=== PATIENT | female | born 1955 | race African-American/Black ===

== ENCOUNTER 2019-02-05 13:18 | Inpatient (IN) | payer MEDICAID ==
[~2019-02-05] VITALS: Ht 157.5 cm; Wt 109.3 kg
[2019-02-05] MEDS ORDERED: METHYLPREDNISOLONE SOD SUCC 125 MG/2 ML VIAL IV STA (13:33)
[2019-02-05] MEDS ORDERED: IPRATROPIUM BROMIDE (0.02%) 0.5MG/2.5ML NEB HHN STA (13:33)
[2019-02-05] MEDS ORDERED: ALBUTEROL (0.083%) 2.5MG/3ML NEB HHN STA (13:33)
[2019-02-05] MEDS ORDERED: ASPIRIN 81MG TABLET PO ONE (13:45)
[2019-02-05] MEDS ORDERED: FUROSEMIDE 40MG/4ML VIAL IV ONE (13:45)
[2019-02-05] MEDS ORDERED: NITROGLYCERIN OINT 1GM/INCH UDPKT TD ONE (13:45)
[2019-02-05 13:52] LABS: BG BASE EXCESS 1.1 mmol/L (-2.0-2.0); BG BILEVEL POS AIRWAY PRESSURE 15/5; BG CARBOXYHEMOGLOBIN 0.3 % (0.5-1.5); BG DEOXYHEMOGLOBIN 0.2 % (0.0-5.0); BG FRACTION INSPIRED OXYGEN 100; BG HCO3 ACT 26.4 mmol/L (22.0-26.0); BG METHEMOGLOBIN 0.6 % (0.0-1.5); BG OXYGEN SATURATION 99.8 % (92.0-98.5); BG OXYHEMOGLOBIN 98.9 % (94.0-97.0); BG PCO2 45.4 mmHg (35.0-45.0); BG PH 7.383 (7.350-7.450); BG PO2 558.8 mmHg (75.0-100.0); BG SAMPLE SITE RIGHT BRACHIAL; BG TOTAL HEMOGLOBIN 10.5 g/dL (12.0-18.0); BG VENT MODE MASK - BIPAP; BG VENT RATE 14 set
[2019-02-05 14:08] LABS: BASOPHILS % 0.6 % (0.0-2.0); EOSINOPHILS % 2.4 % (0.0-5.0); HEMATOCRIT. 32.3 % (36.0-48.0); HEMOGLOBIN. 9.9 g/dL (12.0-16.0); LYMPHOCYTES % 31.1 % (20.0-50.0); MEAN CORPUSCULAR HEMOGLOBIN 21.7 pg (28.0-32.0); MEAN CORPUSCULAR VOLUME 70.9 fL (81.0-99.0); MEAN PLATELET VOLUME 9.2 fl (7.4-10.4); MONOCYTES % 6.1 % (2.0-8.0); NEUTROPHILS % 59.8 % (40.0-76.0); PLATELET 219 x1000/uL (130-400); RED BLOOD CELL COUNT 4.56 mill/uL (4.2-5.4); RED CELL DISTRIBUTION WIDTH 16.2 % (11.6-14.6)
[2019-02-05 14:13] LABS: CHLORIDE 108 mEq/L (98-107)
[2019-02-05 14:16] LABS: PARTIAL THROMBOPLASTIN TIME 25.8 sec (23.4-31.0); PROTHROMBIN TIME 10.3 sec (9.6-11.0)
[2019-02-05] MEDS ORDERED: ONDANSETRON HCL 4MG/2ML INJ IV STA (15:59)
[2019-02-05] MEDS ORDERED: MORPHINE SULFATE 4 MG/ML CPJ (NOT FOR IM USE) IV STA (15:59)
[2019-02-05] MEDS ORDERED: ONDANSETRON HCL 4MG/2ML INJ IV PRN (17:00)
[2019-02-05] MEDS ORDERED: LEVOFLOXACIN 500MG PREMIX 100 ML IV SCH (17:00)
[2019-02-05] MEDS ORDERED: DEXTROSE 50% WATER 50ML SYRINGE IV PRN (17:00)
[2019-02-05] MEDS ORDERED: ACETAMINOPHEN 650MG SUPP PR PRN (17:00)
[2019-02-05] MEDS ORDERED: MAGNESIUM/ALUMINUM HYDROXIDE/SIMETHICONE 30ML UDC PO PRN (17:00)
[2019-02-05] MEDS ORDERED: NA PHOS,M-B/NA PHOS,DI-BA ENEMA 118ML PR PRN (17:00)
[2019-02-05] MEDS ORDERED: IPRATROPIUM/ALBUTEROL 0.5-3(2.5)MG/3ML NEB INH PRN (17:00)
[2019-02-05] MEDS ORDERED: ACETAMINOPHEN 325MG TABLET PO PRN (17:00)
[2019-02-05] MEDS ORDERED: GUAIFENESIN 200MG/10ML SUGAR FREE UDC PO PRN (17:00)
[2019-02-05] MEDS ORDERED: DIPHENHYDRAMINE 50MG/ML VIAL IV PRN (17:00)
[2019-02-05] MEDS: CLONIDINE 0.1MG TABLET PO PRN (17:43)
[2019-02-05 22:00] VITALS: BP 202/104
[2019-02-05] MEDS: LOSARTAN POTASSIUM 25 MG TABLET PO SCH (22:34)
[2019-02-05] MEDS: BLOOD SUGAR DIAGNOSTIC STRIP TEST SCH (22:35)
[2019-02-05] MEDS: AMLODIPINE 5MG TABLET PO SCH (22:35)
[2019-02-05] MEDS: METHYLPREDNISOLONE SOD SUCC 40 MG/ML VIAL IV SCH (22:35)
[2019-02-05] MEDS: INSULIN LISPRO 100 UNITS/ML SUBCUT SCH (22:52)
[2019-02-05] MEDS: HYDROCODONE/ACETAMINOPHEN 5/325MG TABLET PO PRN ×2 (22:58→22:59)
[2019-02-05 23:00] VITALS: BP 168/86
[2019-02-05] MEDS: LEVOFLOXACIN 500MG PREMIX 100 ML IV SCH (23:33)
[2019-02-06] VITALS (12 sets, daily range): BP systolic 151–202; BP diastolic 78–144
[2019-02-06 00:33] LABS: CREATINE KINASE 41 IU/L (26-192)
[2019-02-06 00:34] LABS: CREATINE KINASE MB FRACTION < 1.0 ng/mL (0.5-3.6)
[2019-02-06] MEDS: IPRATROPIUM/ALBUTEROL 0.5-3(2.5)MG/3ML NEB INH SCH ×3 (02:00→20:41)
[2019-02-06] MEDS: CLONIDINE 0.1MG TABLET PO PRN ×2 (03:15→12:31)
[2019-02-06 05:35] LABS: BASOPHILS % 0.1 % (0.0-2.0); HEMATOCRIT. 33.8 % (36.0-48.0); HEMOGLOBIN. 10.2 g/dL (12.0-16.0); LYMPHOCYTES % 13.9 % (20.0-50.0); MEAN CORPUSCULAR HEMOGLOBIN 21.5 pg (28.0-32.0); MEAN CORPUSCULAR VOLUME 71.4 fL (81.0-99.0); MONOCYTES % 1.3 % (2.0-8.0); NEUTROPHILS % 84.7 % (40.0-76.0); PLATELET 204 x1000/uL (130-400); RED BLOOD CELL COUNT 4.74 mill/uL (4.2-5.4); RED CELL DISTRIBUTION WIDTH 16.5 % (11.6-14.6)
[2019-02-06 05:46] LABS: CHLORIDE 104 mEq/L (98-107)
[2019-02-06 05:59] LABS: LDL CHOLESTEROL 80 mg/dL (5-100)
[2019-02-06 06:00] LABS: CREATINE KINASE 43 IU/L (26-192); CREATINE KINASE MB FRACTION < 1.0 ng/mL (0.5-3.6); HDL CHOLESTEROL 82 mg/dL (40-59); T4 FREE 1.05 ng/dL (0.76-1.46)
[2019-02-06] MEDS: METHYLPREDNISOLONE SOD SUCC 40 MG/ML VIAL IV SCH ×3 (06:45→21:36)
[2019-02-06] MEDS ORDERED: PNEUMOCOCCAL 23-VAL P-SAC VAC 0.5 ML IM ONE (08:00)
[2019-02-06] MEDS: BLOOD SUGAR DIAGNOSTIC STRIP TEST SCH ×4 (08:07→21:37)
[2019-02-06] MEDS: ASPIRIN 81MG EC TABLET PO SCH (08:18)
[2019-02-06] MEDS: FUROSEMIDE 40MG/4ML VIAL IV SCH (08:18)
[2019-02-06] MEDS: LOSARTAN POTASSIUM 25 MG TABLET PO SCH (08:19)
[2019-02-06] MEDS: AMLODIPINE 5MG TABLET PO SCH (08:19)
[2019-02-06] MEDS: ENOXAPARIN 40MG/0.4ML SYR SUBCUT SCH (08:20)
[2019-02-06] MEDS: INSULIN LISPRO 100 UNITS/ML SUBCUT SCH ×4 (08:22→21:37)
[2019-02-06] MEDS: HYDROCODONE/ACETAMINOPHEN 5/325MG TABLET PO PRN (11:11)
[2019-02-06] MEDS: HYDRALAZINE 20MG/ML VIAL IV PRN ×2 (11:14→18:31)
[2019-02-06] MEDS ORDERED: FUROSEMIDE 40MG/4ML VIAL IVP NR (12:00)
[2019-02-06] MEDS ORDERED: MORPHINE SULFATE 2 MG/ML CPJ (NOT FOR IM USE) IV SCH (13:02)
[2019-02-06 13:15] LABS: BG BASE EXCESS 0.1 mmol/L (-2.0-2.0); BG CARBOXYHEMOGLOBIN 0.9 % (0.5-1.5); BG DEOXYHEMOGLOBIN 2.5 % (0.0-5.0); BG FRACTION INSPIRED OXYGEN 25; BG HCO3 ACT 24.2 mmol/L (22.0-26.0); BG METHEMOGLOBIN 0.3 % (0.0-1.5); BG OXYGEN SATURATION 97.5 % (92.0-98.5); BG OXYHEMOGLOBIN 96.3 % (94.0-97.0); BG PCO2 37.5 mmHg (35.0-45.0); BG PH 7.428 (7.350-7.450); BG PO2 92.3 mmHg (75.0-100.0); BG SAMPLE SITE RIGHT RADIAL; BG TOTAL HEMOGLOBIN 13.7 g/dL (12.0-18.0); BG VENT MODE NASAL CANNULA
[2019-02-06 13:36] LABS: CLARITY URINE CLEAR (CLEAR); COLOR URINE YELLOW (YELLOW); KETONES URINE NEGATIVE (NEGATIVE); LEUKOCYTE ESTERASE URINE NEGATIVE (NEGATIVE); NITRITE URINE NEGATIVE (NEGATIVE); OCCULT BLOOD URINE NEGATIVE (NEGATIVE); PROTEIN URINE NEGATIVE (NEGATIVE); SPECIFIC GRAVITY URINE 1.006 (1.005-1.030); UROBILINOGEN URINE 0.2 E.U./dL (0.2-1.0)
[2019-02-06 13:44] LABS: *AMPHETAMINES SCREEN URINE NEGATIVE (NEGATIVE); *BARBITURATES SCREEN URINE NEGATIVE (NEGATIVE); *BENZODIAZEPINES SCREEN URINE NEGATIVE (NEGATIVE); *COCAINE SCREEN URINE NEGATIVE (NEGATIVE)
[2019-02-06 13:45] LABS: CANNABINOID URINE SCREEN NEGATIVE (NEGATIVE); METHADONE URINE SCREEN NEGATIVE (NEGATIVE); OPIATES URINE SCREEN PRESUMTIVE POSITIVE (NEGATIVE); PHENCYCLIDINE URINE SCREEN NEGATIVE (NEGATIVE)
[2019-02-06] MEDS ORDERED: LOSARTAN POTASSIUM 25 MG TABLET PO NR (16:00)
[2019-02-06] MEDS ORDERED: ISOS60TA4 MT (17:30)
[2019-02-06] MEDS ORDERED: CARV25TA47 MT (17:30)
[2019-02-06] MEDS ORDERED: SIMV20TA6 MT (17:30)
[2019-02-06] MEDS ORDERED: OMEP20CA5 MT (17:30)
[2019-02-06] MEDS ORDERED: FURO40TA5 MT (17:30)
[2019-02-06] MEDS ORDERED: METOPROLOL TARTRATE 5MG/5ML VIAL IV NR (19:45)
[2019-02-06] MEDS: BUDESONIDE 0.5MG/2ML NEB HHN SCH (20:49)
[2019-02-06] MEDS: MORPHINE SULFATE 2 MG/ML CPJ (NOT FOR IM USE) IV PRN (21:13)
[2019-02-06] MEDS: LEVOFLOXACIN 500MG PREMIX 100 ML IV SCH (23:30)
[2019-02-07] VITALS (14 sets, daily range): BP systolic 149–211; BP diastolic 76–140
[2019-02-07] MEDS: HYDRALAZINE 20MG/ML VIAL IV PRN ×2 (06:43→11:15)
[2019-02-07] MEDS: METHYLPREDNISOLONE SOD SUCC 40 MG/ML VIAL IV SCH ×3 (06:45→21:05)
[2019-02-07] MEDS: MORPHINE SULFATE 2 MG/ML CPJ (NOT FOR IM USE) IV PRN ×3 (07:04→21:06)
[2019-02-07] MEDS: IPRATROPIUM/ALBUTEROL 0.5-3(2.5)MG/3ML NEB INH SCH ×3 (07:39→20:37)
[2019-02-07] MEDS: BUDESONIDE 0.5MG/2ML NEB HHN SCH ×2 (07:39→20:37)
[2019-02-07] MEDS: BLOOD SUGAR DIAGNOSTIC STRIP TEST SCH ×4 (07:45→21:18)
[2019-02-07] MEDS ORDERED: NITROGLYCERIN OINT 1GM/INCH UDPKT TD NR (07:56)
[2019-02-07] MEDS: FAMOTIDINE 20MG/2ML VIAL IV SCH ×2 (08:07→21:06)
[2019-02-07] MEDS: ASPIRIN 81MG EC TABLET PO SCH (08:08)
[2019-02-07] MEDS: FUROSEMIDE 40MG/4ML VIAL IV SCH (08:08)
[2019-02-07] MEDS: AMLODIPINE 5MG TABLET PO SCH (08:10)
[2019-02-07] MEDS: INSULIN LISPRO 100 UNITS/ML SUBCUT SCH ×4 (08:21→21:15)
[2019-02-07] MEDS: ENOXAPARIN 40MG/0.4ML SYR SUBCUT SCH (08:28)
[2019-02-07] MEDS ORDERED: DILTIAZEM HCL 5MG/ML 5ML VIAL IV NR (08:30)
[2019-02-07] MEDS ORDERED: LOSARTAN POTASSIUM 50 MG TABLET PO SCH (09:00)
[2019-02-07] MEDS ORDERED: DIGOXIN 500MCG/2ML AMP IV NR (12:30)
[2019-02-07] MEDS ORDERED: DILTIAZEM HCL 125 MG in DEXT 5% WATER 100 ML IV PRN (12:30)
[2019-02-07] MEDS ORDERED: GADOBENATE DIMEGLUMINE 529 MG/ML 10ML IV ONE (15:54)
[2019-02-07 16:22] LABS: CHLORIDE 102 mEq/L (98-107)
[2019-02-07] MEDS: ENOXAPARIN 100MG/ML SYR SUBCUT SCH (16:48)
[2019-02-07] MEDS: NITROGLYCERIN OINT 1GM/INCH UDPKT TD SCH ×2 (16:51→21:17)
[2019-02-07] MEDS: DILTIAZEM HCL 60MG TABLET PO SCH ×2 (17:20→23:45)
[2019-02-07] MEDS: METOCLOPRAMIDE HCL 10MG/2ML VIAL IV SCH ×2 (17:21→23:45)
[2019-02-07 17:43] LABS: BASOPHILS % 0.5 % (0.0-2.0); HEMOGLOBIN. 11.7 g/dL (12.0-16.0); LYMPHOCYTES % 8.2 % (20.0-50.0); MEAN CORPUSCULAR HEMOGLOBIN 21.9 pg (28.0-32.0); MEAN CORPUSCULAR VOLUME 71.1 fL (81.0-99.0); MEAN PLATELET VOLUME 9.9 fl (7.4-10.4); MONOCYTES % 2.7 % (2.0-8.0); NEUTROPHILS % 88.6 % (40.0-76.0); PLATELET 298 x1000/uL (130-400); RED BLOOD CELL COUNT 5.35 mill/uL (4.2-5.4); RED CELL DISTRIBUTION WIDTH 16.8 % (11.6-14.6)
[2019-02-07] MEDS: LOSARTAN POTASSIUM 50 MG TABLET PO SCH (21:07)
[2019-02-07] MEDS: LEVOFLOXACIN 500MG PREMIX 100 ML IV SCH (23:45)
[2019-02-08] VITALS (30 sets, daily range): BP systolic 112–214; BP diastolic 35–122
[2019-02-08] MEDS: HYDRALAZINE 20MG/ML VIAL IV PRN ×3 (00:08→12:37)
[2019-02-08] MEDS: IPRATROPIUM/ALBUTEROL 0.5-3(2.5)MG/3ML NEB INH SCH ×4 (00:38→21:12)
[2019-02-08] MEDS: ENOXAPARIN 100MG/ML SYR SUBCUT SCH ×2 (04:50→18:19)
[2019-02-08] MEDS: LACTULOSE 20G/30ML UDC PO SCH ×3 (04:51→17:00)
[2019-02-08] MEDS: NITROGLYCERIN OINT 1GM/INCH UDPKT TD SCH ×4 (04:51→22:16)
[2019-02-08] MEDS: MORPHINE SULFATE 2 MG/ML CPJ (NOT FOR IM USE) IV PRN (04:52)
[2019-02-08] MEDS: METOCLOPRAMIDE HCL 10MG/2ML VIAL IV SCH ×3 (05:14→18:00)
[2019-02-08] MEDS: METHYLPREDNISOLONE SOD SUCC 40 MG/ML VIAL IV SCH ×2 (05:14→14:55)
[2019-02-08] MEDS: DILTIAZEM HCL 60MG TABLET PO SCH ×2 (05:18→12:36)
[2019-02-08 07:06] LABS: BASOPHILS % 0.1 % (0.0-2.0); HEMOGLOBIN. 10.4 g/dL (12.0-16.0); LYMPHOCYTES % 9.4 % (20.0-50.0); MEAN CORPUSCULAR HEMOGLOBIN 21.2 pg (28.0-32.0); MEAN CORPUSCULAR VOLUME 70.9 fL (81.0-99.0); MONOCYTES % 2.9 % (2.0-8.0); NEUTROPHILS % 87.6 % (40.0-76.0); PLATELET 271 x1000/uL (130-400); RED BLOOD CELL COUNT 4.93 mill/uL (4.2-5.4); RED CELL DISTRIBUTION WIDTH 16.2 % (11.6-14.6)
[2019-02-08 07:21] LABS: CHLORIDE 102 mEq/L (98-107)
[2019-02-08] MEDS: BLOOD SUGAR DIAGNOSTIC STRIP TEST SCH ×4 (07:30→21:00)
[2019-02-08 07:32] LABS: CREATINE KINASE 37 IU/L (26-192)
[2019-02-08 07:33] LABS: CREATINE KINASE MB FRACTION 1.6 ng/mL (0.5-3.6)
[2019-02-08] MEDS: CLONIDINE 0.1MG TABLET PO PRN ×3 (08:09→18:00)
[2019-02-08] MEDS: DOCUSATE SODIUM 100MG CAPSULE PO PRN ×2 (08:09→18:00)
[2019-02-08] MEDS: FUROSEMIDE 40MG/4ML VIAL IV SCH (08:09)
[2019-02-08] MEDS: ASPIRIN 81MG EC TABLET PO SCH (08:10)
[2019-02-08] MEDS: FAMOTIDINE 20MG/2ML VIAL IV SCH ×2 (08:10→22:16)
[2019-02-08] MEDS: LOSARTAN POTASSIUM 50 MG TABLET PO SCH ×2 (08:10→22:16)
[2019-02-08] MEDS: AMLODIPINE 5MG TABLET PO SCH (08:38)
[2019-02-08] MEDS: BUDESONIDE 0.5MG/2ML NEB HHN SCH ×2 (08:46→21:11)
[2019-02-08] MEDS: INSULIN LISPRO 100 UNITS/ML SUBCUT SCH ×4 (08:59→22:16)
[2019-02-08] MEDS: DILTIAZEM HCL 125 MG in DEXT 5% WATER 100 ML IV SCH (12:04)
[2019-02-08] MEDS ORDERED: HYDRALAZINE 20MG/ML VIAL IV PRN (13:15)
[2019-02-08] MEDS ORDERED: DEXTROSE 50% WATER 50ML SYRINGE IV PRN (17:30)
[2019-02-08] MEDS: DILTIAZEM HCL 90MG TABLET PO SCH (18:01)
[2019-02-08] MEDS: HYDRALAZINE HCL 100MG TABLET PO SCH (22:17)
[2019-02-08] MEDS: LEVOFLOXACIN 500MG PREMIX 100 ML IV SCH (22:18)
[2019-02-09] VITALS (16 sets, daily range): BP systolic 131–183; BP diastolic 58–103
[2019-02-09] MEDS: METOCLOPRAMIDE HCL 10MG/2ML VIAL IV SCH ×4 (00:16→17:08)
[2019-02-09] MEDS: DILTIAZEM HCL 90MG TABLET PO SCH ×4 (00:16→18:16)
[2019-02-09] MEDS: MORPHINE SULFATE 2 MG/ML CPJ (NOT FOR IM USE) IV PRN ×4 (00:33→23:27)
[2019-02-09] MEDS: IPRATROPIUM/ALBUTEROL 0.5-3(2.5)MG/3ML NEB INH SCH ×4 (02:15→21:33)
[2019-02-09] MEDS: NITROGLYCERIN OINT 1GM/INCH UDPKT TD SCH ×4 (04:50→23:28)
[2019-02-09] MEDS: ENOXAPARIN 100MG/ML SYR SUBCUT SCH ×2 (04:51→16:54)
[2019-02-09] MEDS: HYDRALAZINE HCL 100MG TABLET PO SCH ×3 (05:05→23:26)
[2019-02-09 07:50] LABS: BASOPHILS % 0.2 % (0.0-2.0); HEMATOCRIT. 35.3 % (36.0-48.0); LYMPHOCYTES % 11.6 % (20.0-50.0); MEAN CORPUSCULAR HEMOGLOBIN 21.7 pg (28.0-32.0); MEAN PLATELET VOLUME 9.1 fl (7.4-10.4); MONOCYTES % 5.4 % (2.0-8.0); NEUTROPHILS % 82.8 % (40.0-76.0); PLATELET 272 x1000/uL (130-400); RED BLOOD CELL COUNT 5.04 mill/uL (4.2-5.4); RED CELL DISTRIBUTION WIDTH 16.4 % (11.6-14.6)
[2019-02-09] MEDS: BLOOD SUGAR DIAGNOSTIC STRIP TEST SCH ×4 (08:00→21:00)
[2019-02-09] MEDS: LACTULOSE 20G/30ML UDC PO SCH ×2 (08:38→16:39)
[2019-02-09] MEDS: FUROSEMIDE 40MG/4ML VIAL IV SCH (08:38)
[2019-02-09] MEDS: LOSARTAN POTASSIUM 50 MG TABLET PO SCH ×2 (08:38→22:33)
[2019-02-09] MEDS: FAMOTIDINE 20MG/2ML VIAL IV SCH ×2 (08:38→22:33)
[2019-02-09] MEDS: ASPIRIN 81MG EC TABLET PO SCH (08:38)
[2019-02-09] MEDS: PREDNISONE 20MG TABLET PO SCH (08:38)
[2019-02-09] MEDS: INSULIN LISPRO 100 UNITS/ML SUBCUT SCH ×4 (08:40→22:32)
[2019-02-09 08:51] LABS: CHLORIDE 102 mEq/L (98-107)
[2019-02-09] MEDS: DILTIAZEM HCL 125 MG in DEXT 5% WATER 100 ML IV SCH (10:52)
[2019-02-09] MEDS: MINOXIDIL 2.5MG TABLET PO SCH ×2 (12:54→22:33)
[2019-02-09] MEDS: CLONIDINE 0.1MG TABLET PO PRN (15:10)
[2019-02-09] MEDS ORDERED: DIGOXIN 500MCG/2ML AMP IV SCH (18:00)
[2019-02-09 19:46] LABS: PLATELET ESTIMATE NORMAL
[2019-02-09] MEDS ORDERED: LEVOFLOXACIN 500MG TABLET PO SCH (22:00)
[2019-02-09] MEDS: METOPROLOL TARTRATE 25MG TABLET PO SCH (23:26)
[2019-02-10] VITALS (10 sets, daily range): BP systolic 107–157; BP diastolic 38–89
[2019-02-10] MEDS: METOCLOPRAMIDE HCL 10MG/2ML VIAL IV SCH ×3 (01:37→12:17)
[2019-02-10] MEDS: DILTIAZEM HCL 90MG TABLET PO SCH ×3 (01:38→12:21)
[2019-02-10] MEDS: CLONIDINE 0.1MG TABLET PO PRN (01:38)
[2019-02-10] MEDS: CLONIDINE 0.2MG TABLET PO SCH ×3 (01:49→14:23)
[2019-02-10] MEDS: IPRATROPIUM/ALBUTEROL 0.5-3(2.5)MG/3ML NEB INH SCH ×3 (02:37→13:05)
[2019-02-10] MEDS: NITROGLYCERIN OINT 1GM/INCH UDPKT TD SCH ×2 (04:00→09:38)
[2019-02-10] MEDS: HYDRALAZINE HCL 100MG TABLET PO SCH ×2 (05:03→14:23)
[2019-02-10] MEDS: ENOXAPARIN 100MG/ML SYR SUBCUT SCH (05:11)
[2019-02-10 07:46] LABS: BASOPHILS % 0.5 % (0.0-2.0); EOSINOPHILS % 0.1 % (0.0-5.0); HEMATOCRIT. 35.3 % (36.0-48.0); HEMOGLOBIN. 10.8 g/dL (12.0-16.0); LYMPHOCYTES % 32.1 % (20.0-50.0); MEAN CORPUSCULAR HEMOGLOBIN 21.5 pg (28.0-32.0); MEAN CORPUSCULAR VOLUME 70.7 fL (81.0-99.0); MEAN PLATELET VOLUME 8.7 fl (7.4-10.4); MONOCYTES % 8.8 % (2.0-8.0); NEUTROPHILS % 58.5 % (40.0-76.0); PLATELET 249 x1000/uL (130-400); RED CELL DISTRIBUTION WIDTH 16.6 % (11.6-14.6)
[2019-02-10 07:52] LABS: CHLORIDE 104 mEq/L (98-107)
[2019-02-10] MEDS: BLOOD SUGAR DIAGNOSTIC STRIP TEST SCH ×2 (08:20→12:22)
[2019-02-10] MEDS: METOPROLOL TARTRATE 25MG TABLET PO SCH (09:00)
[2019-02-10] MEDS: LOSARTAN POTASSIUM 50 MG TABLET PO SCH (09:00)
[2019-02-10] MEDS: FAMOTIDINE 20MG/2ML VIAL IV SCH (09:33)
[2019-02-10] MEDS: FUROSEMIDE 40MG/4ML VIAL IV SCH (09:33)
[2019-02-10] MEDS: LACTULOSE 20G/30ML UDC PO SCH (09:34)
[2019-02-10] MEDS: PREDNISONE 20MG TABLET PO SCH (09:35)
[2019-02-10] MEDS: ASPIRIN 81MG EC TABLET PO SCH (09:35)
[2019-02-10] MEDS: MINOXIDIL 2.5MG TABLET PO SCH (09:36)
[2019-02-10] MEDS: INSULIN LISPRO 100 UNITS/ML SUBCUT SCH ×2 (09:37→12:25)
[2019-02-10] MEDS ORDERED: POTASSIUM CHLORIDE 20MEQ TABLET SR PO NR (11:45)
[2019-02-10] MEDS: HYDROCODONE/ACETAMINOPHEN 5/325MG TABLET PO PRN (15:28)
== END 2019-02-10 16:20 | disposition home or self-care (01) | DRG 201 ==
LOC: ER 13:18 → 5EST 16:23 → SUPCPDRO 16:32 → EDBEDREQ 16:36 → ENRESERV 19:45 → 5EST 02-10 02:02
PROVIDERS: ADMIT Internal Medicine; ATTEND Internal Medicine
PROC: 5A09357 Assistance with Respiratory Ventilation, Less than 24 Consecutive Hours, Continuous Positive Airway Pressure (ICD-10-PCS; principal; 2019-02-05)
PROC: 5A09357 Assistance with Respiratory Ventilation, Less than 24 Consecutive Hours, Continuous Positive Airway Pressure (ICD-10-PCS; 2019-02-09)
DX: I48.91 Unspecified atrial fibrillation (principal); J96.02 Acute respiratory failure with hypercapnia; I50.33 Acute on chronic diastolic (congestive) heart failure; J18.9 Pneumonia, unspecified organism; D68.59 Other primary thrombophilia; E87.2 Acidosis; E66.2 Morbid (severe) obesity with alveolar hypoventilation; E11.65 Type 2 diabetes mellitus with hyperglycemia; I11.0 Hypertensive heart disease with heart failure; J44.1 Chronic obstructive pulmonary disease with (acute) exacerbation; K56.7 Ileus, unspecified; F41.9 Anxiety disorder, unspecified; I16.0 Hypertensive urgency; D64.9 Anemia, unspecified; E78.5 Hyperlipidemia, unspecified; R29.6 Repeated falls; R07.89 Other chest pain; Z68.41 Body mass index [BMI] 40.0-44.9, adult; Z99.81 Dependence on supplemental oxygen; J44.0 Chronic obstructive pulmonary disease with (acute) lower respiratory infection
CPT/HCPCS: 36415; 36600; 71045; 74018; 78580; 80048; 80061; 80305; 81003; 82375; 82550; 82553; 82805; 82962; 83036; 83735; 83880; 84439; 84443; 84484; 85379; 87070; 93005; 93306; 93970; 94640; 94644; 94660; 96374; 99285; A9577; J0360; J1160; J1200; J1650; J1815; J1940; J1956; J2270; J2405; J2765; J2920; J2930; J3490; J7060; J7512; J7611; J7620; J7626

== ENCOUNTER 2019-03-17 20:48 | Inpatient (IN) | payer MEDICAID ==
[~2019-03-17] VITALS: Ht 157.5 cm; Wt 100.7 kg
[2019-03-17 05:45] VITALS: BP 176/116
[~2019-03-17 20:48] MED LIST: FURO40TA5 MT; OMEP20CA5 MT; SIMV20TA6 MT
[2019-03-17] MEDS ORDERED: SODIUM CHLORIDE 0.9% 1,000 ML IV ONE (22:44)
[2019-03-17] MEDS ORDERED: INSULIN REGULAR (HUMULIN R) 300UNITS/3ML SUBCUT ONE (22:45)
[2019-03-17 23:36] LABS: BASOPHILS % 0.6 % (0.0-2.0); EOSINOPHILS % 0.7 % (0.0-5.0); HEMATOCRIT. 36.7 % (36.0-48.0); HEMOGLOBIN. 10.9 g/dL (12.0-16.0); LYMPHOCYTES % 34.6 % (20.0-50.0); MEAN CORPUSCULAR HEMOGLOBIN 22.1 pg (28.0-32.0); MEAN CORPUSCULAR VOLUME 74.1 fL (81.0-99.0); MEAN PLATELET VOLUME 8.4 fl (7.4-10.4); MONOCYTES % 8.1 % (2.0-8.0); PLATELET 219 x1000/uL (130-400); RED BLOOD CELL COUNT 4.95 mill/uL (4.2-5.4)
[2019-03-17 23:56] LABS: CHLORIDE 102 mEq/L (98-107)
[2019-03-18 00:05] LABS: BETA HYDROXYBUTYRATE 2.2 mMol/L (0.0-0.3)
[2019-03-18] MEDS ORDERED: CLONIDINE 0.2MG TABLET PO ONE (00:15)
[2019-03-18 01:17] LABS: CLARITY URINE CLEAR (CLEAR); COLOR URINE YELLOW (YELLOW); KETONES URINE 4+ (NEGATIVE); LEUKOCYTE ESTERASE URINE NEGATIVE (NEGATIVE); NITRITE URINE NEGATIVE (NEGATIVE); OCCULT BLOOD URINE NEGATIVE (NEGATIVE); PROTEIN URINE NEGATIVE (NEGATIVE); SPECIFIC GRAVITY URINE 1.034 (1.005-1.030)
[2019-03-18 05:45] VITALS: BP 176/116
[2019-03-18] MEDS ORDERED: CLON0.1T MT (06:36)
[2019-03-18] MEDS ORDERED: DILT180T11 MT (06:36)
[2019-03-18] MEDS ORDERED: METF-816 MT (06:36)
[2019-03-18] MEDS ORDERED: P20 MT (06:36)
[2019-03-18] MEDS ORDERED: METO25TA6 MT (06:36)
[2019-03-18] MEDS ORDERED: APIX5TAB MT (06:36)
[2019-03-18] MEDS ORDERED: DIGO250T81 MT (06:37)
[2019-03-18 07:59] VITALS: BP 177/69
[2019-03-18] MEDS ORDERED: ACETAMINOPHEN 325MG TABLET PO PRN (08:15)
[2019-03-18] MEDS ORDERED: ENOXAPARIN 40MG/0.4ML SYR SUBCUT SCH (08:15)
[2019-03-18] MEDS ORDERED: ONDANSETRON HCL 4MG/2ML INJ IV PRN (08:15)
[2019-03-18] MEDS ORDERED: CLONIDINE 0.1MG TABLET PO PRN (08:15)
[2019-03-18] MEDS ORDERED: ENOXAPARIN 30MG/0.3ML SYR SUBCUT SCH (09:30)
[2019-03-18] MEDS ORDERED: INFLUENZA VIRUS VACCINE(AFLURIA) 0.5ML SYR IM ONE (10:00)
[2019-03-18] MEDS ORDERED: FUROSEMIDE 40MG/4ML VIAL IV SCH (10:00)
[2019-03-18] MEDS: POTASSIUM CHLORIDE 20MEQ TABLET SR PO SCH (10:15)
[2019-03-18] MEDS: ASPIRIN 81MG EC TABLET PO SCH (10:15)
[2019-03-18] MEDS: LISINOPRIL 20MG TABLET PO SCH (10:15)
[2019-03-18] MEDS: AMLODIPINE 10MG TABLET PO SCH (10:16)
[2019-03-18] MEDS: INSULIN GLARGINE UD 100 UNITS/ML SYR SUBCUT SCH (11:25)
[2019-03-18] MEDS: HYDROCODONE/ACETAMINOPHEN 5/325MG TABLET PO PRN ×2 (11:28→23:59)
[2019-03-18 12:10] VITALS: BP 170/66
[2019-03-18] MEDS ORDERED: DEXTROSE 50% WATER 50ML SYRINGE IV PRN (13:00)
[2019-03-18] MEDS: APIXABAN 5 MG TABLET PO SCH ×2 (13:36→21:42)
[2019-03-18] MEDS: BLOOD SUGAR DIAGNOSTIC STRIP TEST SCH ×3 (13:41→21:41)
[2019-03-18] MEDS: INSULIN LISPRO 100 UNITS/ML SUBCUT SCH ×3 (13:42→21:40)
[2019-03-18 13:54] LABS: T4 FREE 1.35 ng/dL (0.76-1.46)
[2019-03-18 15:30] VITALS: BP 144/55
[2019-03-18 16:27] LABS: BASOPHILS % 0.6 % (0.0-2.0); EOSINOPHILS % 0.5 % (0.0-5.0); HEMATOCRIT. 34.9 % (36.0-48.0); HEMOGLOBIN. 10.6 g/dL (12.0-16.0); LYMPHOCYTES % 36.7 % (20.0-50.0); MEAN CORPUSCULAR VOLUME 72.4 fL (81.0-99.0); MEAN PLATELET VOLUME 8.7 fl (7.4-10.4); MONOCYTES % 6.5 % (2.0-8.0); NEUTROPHILS % 55.7 % (40.0-76.0); PLATELET 223 x1000/uL (130-400); RED BLOOD CELL COUNT 4.82 mill/uL (4.2-5.4)
[2019-03-18 16:36] LABS: CHLORIDE 102 mEq/L (98-107)
[2019-03-18 16:45] LABS: CREATINE KINASE 52 IU/L (26-192)
[2019-03-18 16:48] LABS: CREATINE KINASE MB FRACTION 1.9 ng/mL (0.5-3.6)
[2019-03-18] MEDS: OMEPRAZOLE 20MG CAPSULE EXTENDED RELEASE PO SCH (17:32)
[2019-03-18 20:00] VITALS: BP 141/81
[2019-03-18] MEDS: DILTIAZEM HCL 30MG TABLET PO SCH (21:41)
[2019-03-18] MEDS: METOPROLOL TARTRATE 25MG TABLET PO SCH (21:42)
[2019-03-19] VITALS: BP 150/64
[2019-03-19 00:30] LABS: CREATINE KINASE 45 IU/L (26-192)
[2019-03-19 00:32] LABS: CREATINE KINASE MB FRACTION 1.4 ng/mL (0.5-3.6)
[2019-03-19 04:00] VITALS: BP 126/76
[2019-03-19] MEDS: DILTIAZEM HCL 30MG TABLET PO SCH ×2 (05:51→13:39)
[2019-03-19] MEDS: HYDROCODONE/ACETAMINOPHEN 5/325MG TABLET PO PRN (06:06)
[2019-03-19] MEDS: OMEPRAZOLE 20MG CAPSULE EXTENDED RELEASE PO SCH (06:31)
[2019-03-19] MEDS: BLOOD SUGAR DIAGNOSTIC STRIP TEST SCH ×2 (07:01→12:57)
[2019-03-19 07:57] LABS: BASOPHILS % 0.7 % (0.0-2.0); LYMPHOCYTES % 39.5 % (20.0-50.0); MEAN CORPUSCULAR HEMOGLOBIN 22.2 pg (28.0-32.0); MEAN CORPUSCULAR VOLUME 73.4 fL (81.0-99.0); MEAN PLATELET VOLUME 9.3 fl (7.4-10.4); MONOCYTES % 9.5 % (2.0-8.0); NEUTROPHILS % 49.3 % (40.0-76.0); PLATELET 241 x1000/uL (130-400); RED CELL DISTRIBUTION WIDTH 16.9 % (11.6-14.6)
[2019-03-19 08:22] LABS: CHLORIDE 101 mEq/L (98-107)
[2019-03-19 08:29] VITALS: BP 133/56
[2019-03-19 08:41] LABS: HDL CHOLESTEROL 71 mg/dL (40-59); LDL CHOLESTEROL 94 mg/dL (5-100)
[2019-03-19] MEDS ORDERED: FUROSEMIDE 40MG TABLET PO SCH (09:00)
[2019-03-19] MEDS: AMLODIPINE 10MG TABLET PO SCH (09:30)
[2019-03-19] MEDS: POTASSIUM CHLORIDE 20MEQ TABLET SR PO SCH (09:31)
[2019-03-19] MEDS: METOPROLOL TARTRATE 25MG TABLET PO SCH (09:31)
[2019-03-19] MEDS: ASPIRIN 81MG EC TABLET PO SCH (09:32)
[2019-03-19] MEDS: APIXABAN 5 MG TABLET PO SCH (09:32)
[2019-03-19] MEDS: LISINOPRIL 20MG TABLET PO SCH (09:32)
[2019-03-19] MEDS: INSULIN LISPRO 100 UNITS/ML SUBCUT SCH ×2 (09:33→13:40)
[2019-03-19] MEDS: INSULIN GLARGINE UD 100 UNITS/ML SYR SUBCUT SCH (10:27)
[2019-03-19 11:50] VITALS: BP 133/67
[2019-03-19 12:10] LABS: BG BASE EXCESS -0.9 mmol/L (-2.0-2.0); BG CARBOXYHEMOGLOBIN 0.7 % (0.5-1.5); BG DEOXYHEMOGLOBIN 4.3 % (0.0-5.0); BG HCO3 ACT 23.6 mmol/L (22.0-26.0); BG METHEMOGLOBIN 0.1 % (0.0-1.5); BG OXYGEN SATURATION 95.7 % (92.0-98.5); BG OXYHEMOGLOBIN 94.9 % (94.0-97.0); BG PCO2 38.1 mmHg (35.0-45.0); BG PH 7.409 (7.350-7.450); BG PO2 77.5 mmHg (75.0-100.0); BG SAMPLE SITE LEFT RADIAL; BG TOTAL HEMOGLOBIN 11.9 g/dL (12.0-18.0); BG VENT MODE ROOM AIR
[2019-03-19 15:05] LABS: *AMPHETAMINES SCREEN URINE NEGATIVE (NEGATIVE); *BARBITURATES SCREEN URINE NEGATIVE (NEGATIVE); *BENZODIAZEPINES SCREEN URINE NEGATIVE (NEGATIVE); *COCAINE SCREEN URINE NEGATIVE (NEGATIVE); OPIATES URINE SCREEN PRESUMTIVE POSITIVE (NEGATIVE); PHENCYCLIDINE URINE SCREEN NEGATIVE (NEGATIVE)
[2019-03-19 15:06] LABS: CANNABINOID URINE SCREEN NEGATIVE (NEGATIVE); METHADONE URINE SCREEN NEGATIVE (NEGATIVE)
[2019-03-19 15:39] VITALS: BP 143/60
[2019-03-19] MEDS ORDERED: LIDOCAINE HCL/PF 1% 2ML VIAL ONE (16:12)
== END 2019-03-19 19:00 | disposition home or self-care (01) | DRG 140 ==
LOC: ER 22:01 → EDBEDREQDT 03-18 02:29 → EDBEDREQTM 03-18 02:29 → EDBEDREQ 03-18 02:29 → ENRESERV 03-18 03:50 → 6WST 03-18 05:27
PROVIDERS: ADMIT Internal Medicine; ATTEND Internal Medicine
DX: J44.1 Chronic obstructive pulmonary disease with (acute) exacerbation (principal); D68.59 Other primary thrombophilia; I11.0 Hypertensive heart disease with heart failure; E11.65 Type 2 diabetes mellitus with hyperglycemia; I50.32 Chronic diastolic (congestive) heart failure; E87.1 Hypo-osmolality and hyponatremia; E78.5 Hyperlipidemia, unspecified; J06.9 Acute upper respiratory infection, unspecified; D64.9 Anemia, unspecified; I16.0 Hypertensive urgency; I48.91 Unspecified atrial fibrillation; Z79.01 Long term (current) use of anticoagulants; Z79.899 Other long term (current) drug therapy; Z91.14 Patient's other noncompliance with medication regimen
CPT/HCPCS: 36415; 36600; 71045; 80048; 80061; 80305; 81003; 82010; 82375; 82550; 82553; 82805; 82962; 83036; 83605; 83880; 84439; 84443; 84484; 87070; 90686; 93005; 93306; 96374; 99285; C1893; J1815; J1940; J3490; J7030

== ENCOUNTER 2019-06-13 23:37 | Inpatient (IN) | payer MEDICAID ==
[~2019-06-13] VITALS: Ht 157.5 cm; Wt 88.9 kg
[~2019-06-13 23:37] MED LIST changes: +APIX5TAB MT; +CLON0.1T MT; +DIGO250T79 MT; +DILT180T11 MT; +METF-816 MT; +METO25TA6 MT; +OMEP20CA14 MT; -OMEP20CA5 MT; +SIMV-43 MT; -SIMV20TA6 MT
[2019-06-14] MEDS ORDERED: MORPHINE SULFATE 4 MG/ML CPJ (NOT FOR IM USE) IV STA (01:18)
[2019-06-14] MEDS ORDERED: ONDANSETRON HCL 4MG/2ML INJ IV STA (01:18)
[2019-06-14] MEDS ORDERED: NITROGLYCERIN OINT 1GM/INCH UDPKT TD ONE (01:30)
[2019-06-14] MEDS ORDERED: ASPIRIN 81MG TABLET PO ONE (01:30)
[2019-06-14 01:51] LABS: BASOPHILS % 0.4 % (0.0-2.0); EOSINOPHILS % 0.8 % (0.0-5.0); HEMATOCRIT. 33.7 % (36.0-48.0); HEMOGLOBIN. 10.2 g/dL (12.0-16.0); LYMPHOCYTES % 27.8 % (20.0-50.0); MEAN CORPUSCULAR HEMOGLOBIN 22.4 pg (28.0-32.0); MEAN PLATELET VOLUME 7.8 fl (7.4-10.4); PLATELET 330 x1000/uL (130-400); RED BLOOD CELL COUNT 4.55 mill/uL (4.2-5.4); RED CELL DISTRIBUTION WIDTH 16.3 % (11.6-14.6)
[2019-06-14 01:57] LABS: CHLORIDE 106 mEq/L (98-107)
[2019-06-14] MEDS ORDERED: KETOROLAC 15MG/ML VIAL IV ONE (03:00)
[2019-06-14 09:00] VITALS: BP 150/71
[2019-06-14] MEDS ORDERED: DEXTROSE 50% WATER 50ML SYRINGE IV PRN (10:15)
[2019-06-14 10:20] VITALS: BP 150/71
[2019-06-14] MEDS: BLOOD SUGAR DIAGNOSTIC STRIP TEST SCH ×3 (11:48→21:47)
[2019-06-14 12:00] VITALS: BP 164/76
[2019-06-14] MEDS: INSULIN LISPRO 100 UNITS/ML SUBCUT SCH ×3 (12:37→22:27)
[2019-06-14] MEDS: HYDRALAZINE 20MG/ML VIAL IV PRN (13:43)
[2019-06-14] MEDS: HYDROCODONE/ACETAMINOPHEN 5/325MG TABLET PO PRN (15:42)
[2019-06-14 16:00] VITALS: BP 172/73
[2019-06-14] MEDS ORDERED: ONDANSETRON HCL 4MG/2ML INJ IV PRN (16:15)
[2019-06-14] MEDS ORDERED: GUAIFENESIN 200MG/10ML SUGAR FREE UDC PO PRN (16:15)
[2019-06-14] MEDS ORDERED: MORPHINE SULFATE 2 MG/ML CPJ (NOT FOR IM USE) IV PRN (16:15)
[2019-06-14] MEDS ORDERED: IPRATROPIUM/ALBUTEROL 0.5-3(2.5)MG/3ML NEB HHN PRN (16:15)
[2019-06-14] MEDS ORDERED: LORAZEPAM 2MG/ML CPJ IV PRN (16:15)
[2019-06-14] MEDS ORDERED: LISI-604 MT (16:33)
[2019-06-14] MEDS ORDERED: GLIP10TA10 MT (16:33)
[2019-06-14] MEDS ORDERED: ASPIRIN 81MG TABLET PO SCH (16:34)
[2019-06-14] MEDS ORDERED: HYDR-4134 MT (16:35)
[2019-06-14] MEDS ORDERED: LACTULOSE 20G/30ML UDC PO NR (16:42)
[2019-06-14] MEDS ORDERED: ENOXAPARIN 100MG/ML SYR SUBCUT NR (17:07)
[2019-06-14] MEDS: FUROSEMIDE 40MG TABLET PO SCH (17:23)
[2019-06-14] MEDS: DIGOXIN 125MCG TABLET PO SCH (18:11)
[2019-06-14 18:42] VITALS: BP 157/76
[2019-06-14 20:00] VITALS: BP 146/69
[2019-06-14] MEDS: ATORVASTATIN CALCIUM 20MG TABLET PO SCH (21:47)
[2019-06-14] MEDS: METOPROLOL TARTRATE 25MG TABLET PO SCH (21:51)
[2019-06-14] MEDS: DILTIAZEM HCL 60MG TABLET PO SCH (21:51)
[2019-06-14] MEDS ORDERED: DILTIAZEM HCL 30MG TABLET PO SCH (22:00)
[2019-06-14] MEDS: BUDESONIDE 0.5MG/2ML NEB HHN SCH (22:11)
[2019-06-14] MEDS: IPRATROPIUM/ALBUTEROL 0.5-3(2.5)MG/3ML NEB HHN SCH (22:11)
[2019-06-15] VITALS (8 sets, daily range): BP systolic 139–182; BP diastolic 56–90
[2019-06-15 01:06] LABS: PROTHROMBIN TIME 10.1 sec (9.6-11.0)
[2019-06-15 01:17] LABS: DIGOXIN 0.8 ng/mL (0.9-2.0)
[2019-06-15] MEDS: IPRATROPIUM/ALBUTEROL 0.5-3(2.5)MG/3ML NEB HHN SCH ×4 (02:44→20:30)
[2019-06-15] MEDS ORDERED: ACETAMINOPHEN 325MG TABLET PO PRN (05:30)
[2019-06-15] MEDS ORDERED: ENOXAPARIN 100MG/ML SYR SUBCUT SCH (06:00)
[2019-06-15] MEDS: BLOOD SUGAR DIAGNOSTIC STRIP TEST SCH ×4 (06:14→20:34)
[2019-06-15] MEDS: DILTIAZEM HCL 60MG TABLET PO SCH ×3 (06:14→22:13)
[2019-06-15] MEDS: INSULIN LISPRO 100 UNITS/ML SUBCUT SCH ×4 (06:29→20:55)
[2019-06-15] MEDS: BUDESONIDE 0.5MG/2ML NEB HHN SCH (08:51)
[2019-06-15 08:56] LABS: BASOPHILS % 0.6 % (0.0-2.0); EOSINOPHILS % 1.9 % (0.0-5.0); HEMATOCRIT. 29.2 % (36.0-48.0); HEMOGLOBIN. 8.7 g/dL (12.0-16.0); MEAN CORPUSCULAR HEMOGLOBIN 21.8 pg (28.0-32.0); MEAN CORPUSCULAR VOLUME 73.1 fL (81.0-99.0); MEAN PLATELET VOLUME 8.3 fl (7.4-10.4); MONOCYTES % 5.1 % (2.0-8.0); NEUTROPHILS % 64.4 % (40.0-76.0); PLATELET 269 x1000/uL (130-400); RED BLOOD CELL COUNT 3.99 mill/uL (4.2-5.4); RED CELL DISTRIBUTION WIDTH 16.3 % (11.6-14.6)
[2019-06-15 09:06] LABS: CHLORIDE 103 mEq/L (98-107)
[2019-06-15] MEDS: METOPROLOL TARTRATE 25MG TABLET PO SCH ×2 (09:12→20:54)
[2019-06-15 09:13] LABS: LDL CHOLESTEROL 90 mg/dL (5-100)
[2019-06-15 09:15] LABS: HDL CHOLESTEROL 55 mg/dL (40-59)
[2019-06-15] MEDS ORDERED: LIDOCAINE HCL/PF 1% 2ML VIAL ONE (09:15)
[2019-06-15] MEDS: ASPIRIN 81MG EC TABLET PO SCH (09:25)
[2019-06-15] MEDS: FUROSEMIDE 40MG TABLET PO SCH (09:25)
[2019-06-15] MEDS ORDERED: POTASSIUM CHLORIDE 20MEQ TABLET SR PO NR (10:15)
[2019-06-15 11:36] LABS: BG BASE EXCESS 3.1 mmol/L (-2.0-2.0); BG CARBOXYHEMOGLOBIN 0.2 % (0.5-1.5); BG DEOXYHEMOGLOBIN 5.9 % (0.0-5.0); BG FRACTION INSPIRED OXYGEN 21; BG HCO3 ACT 27.8 mmol/L (22.0-26.0); BG METHEMOGLOBIN 0.4 % (0.0-1.5); BG OXYGEN SATURATION 94.1 % (92.0-98.5); BG OXYHEMOGLOBIN 93.5 % (94.0-97.0); BG PCO2 43.3 mmHg (35.0-45.0); BG PH 7.426 (7.350-7.450); BG PO2 70.8 mmHg (75.0-100.0); BG SAMPLE SITE RIGHT RADIAL; BG TOTAL HEMOGLOBIN 10.4 g/dL (12.0-18.0); BG VENT MODE ROOM AIR
[2019-06-15 12:10] LABS: CLARITY URINE CLEAR (CLEAR); COLOR URINE YELLOW (YELLOW); KETONES URINE NEGATIVE (NEGATIVE); LEUKOCYTE ESTERASE URINE NEGATIVE (NEGATIVE); NITRITE URINE NEGATIVE (NEGATIVE); OCCULT BLOOD URINE NEGATIVE (NEGATIVE); PROTEIN URINE NEGATIVE (NEGATIVE); SPECIFIC GRAVITY URINE 1.008 (1.005-1.030); UROBILINOGEN URINE 0.2 E.U./dL (0.2-1.0)
[2019-06-15] MEDS: HYDROCODONE/ACETAMINOPHEN 5/325MG TABLET PO PRN (12:16)
[2019-06-15] MEDS: LISINOPRIL 20MG TABLET PO SCH (13:43)
[2019-06-15 14:16] LABS: CANNABINOID URINE SCREEN NEGATIVE (NEGATIVE); OPIATES URINE SCREEN PRESUMTIVE POSITIVE (NEGATIVE); PHENCYCLIDINE URINE SCREEN NEGATIVE (NEGATIVE)
[2019-06-15 14:17] LABS: *AMPHETAMINES SCREEN URINE NEGATIVE (NEGATIVE)
[2019-06-15 14:18] LABS: *BENZODIAZEPINES SCREEN URINE NEGATIVE (NEGATIVE)
[2019-06-15 14:19] LABS: *BARBITURATES SCREEN URINE NEGATIVE (NEGATIVE); METHADONE URINE SCREEN NEGATIVE (NEGATIVE)
[2019-06-15 14:20] LABS: *COCAINE SCREEN URINE NEGATIVE (NEGATIVE)
[2019-06-15] MEDS: LEVOFLOXACIN 500MG PREMIX 100 ML IV SCH (14:27)
[2019-06-15] MEDS ORDERED: APIXABAN 5 MG TABLET PO SCH (17:00)
[2019-06-15 17:43] LABS: HEMATOCRIT 31.2 % (36.0-48.0); HEMOGLOBIN 9.4 g/dL (12.0-16.0)
[2019-06-15] MEDS: DIGOXIN 125MCG TABLET PO SCH (18:25)
[2019-06-15] MEDS: FUROSEMIDE 40MG/4ML VIAL IVP SCH (18:25)
[2019-06-15] MEDS: HYDRALAZINE HCL 10MG TABLET PO SCH ×2 (18:25→23:04)
[2019-06-15] MEDS: APIXABAN 5 MG TABLET PO SCH (20:54)
[2019-06-15] MEDS: ATORVASTATIN CALCIUM 20MG TABLET PO SCH (20:54)
[2019-06-15] MEDS: GABAPENTIN 100MG CAPSULE PO SCH (22:13)
[2019-06-15] MEDS: INSULIN GLARGINE UD 100 UNITS/ML SYR SUBCUT SCH (22:14)
[2019-06-15] MEDS: MORPHINE SULFATE 2 MG/ML CPJ (NOT FOR IM USE) IV PRN (23:04)
[2019-06-16] VITALS (8 sets, daily range): BP systolic 125–198; BP diastolic 60–89
[2019-06-16] MEDS: HYDROCODONE/ACETAMINOPHEN 5/325MG TABLET PO PRN (03:39)
[2019-06-16] MEDS: HYDRALAZINE 20MG/ML VIAL IV PRN ×2 (03:39→16:43)
[2019-06-16] MEDS: MORPHINE SULFATE 2 MG/ML CPJ (NOT FOR IM USE) IV PRN ×2 (05:06→16:55)
[2019-06-16] MEDS: GABAPENTIN 100MG CAPSULE PO SCH ×3 (05:53→22:11)
[2019-06-16] MEDS: DILTIAZEM HCL 60MG TABLET PO SCH ×3 (05:53→20:40)
[2019-06-16] MEDS: HYDRALAZINE HCL 10MG TABLET PO SCH ×3 (05:54→22:11)
[2019-06-16] MEDS: BLOOD SUGAR DIAGNOSTIC STRIP TEST SCH ×4 (05:58→20:33)
[2019-06-16] MEDS: FUROSEMIDE 40MG/4ML VIAL IVP SCH ×2 (06:35→16:43)
[2019-06-16] MEDS: INSULIN LISPRO 100 UNITS/ML SUBCUT SCH ×4 (06:35→20:44)
[2019-06-16 08:06] LABS: BASOPHILS % 1.4 % (0.0-2.0); EOSINOPHILS % 1.7 % (0.0-5.0); HEMATOCRIT. 31.4 % (36.0-48.0); HEMOGLOBIN. 9.5 g/dL (12.0-16.0); MEAN CORPUSCULAR VOLUME 72.9 fL (81.0-99.0); MEAN PLATELET VOLUME 8.3 fl (7.4-10.4); MONOCYTES % 5.4 % (2.0-8.0); NEUTROPHILS % 65.5 % (40.0-76.0); PLATELET 309 x1000/uL (130-400); RED CELL DISTRIBUTION WIDTH 16.5 % (11.6-14.6)
[2019-06-16] MEDS: BUDESONIDE 0.5MG/2ML NEB HHN SCH ×2 (08:21→20:55)
[2019-06-16] MEDS: IPRATROPIUM/ALBUTEROL 0.5-3(2.5)MG/3ML NEB HHN SCH ×3 (08:21→20:55)
[2019-06-16 08:32] LABS: CHLORIDE 101 mEq/L (98-107)
[2019-06-16 08:41] LABS: TOTAL IRON BINDING CAPACITY 315 ug/dL (250-450)
[2019-06-16] MEDS: LISINOPRIL 20MG TABLET PO SCH (09:22)
[2019-06-16] MEDS: ASPIRIN 81MG EC TABLET PO SCH (09:22)
[2019-06-16] MEDS: METOPROLOL TARTRATE 25MG TABLET PO SCH ×2 (09:22→20:40)
[2019-06-16] MEDS: APIXABAN 5 MG TABLET PO SCH ×2 (09:22→16:44)
[2019-06-16] MEDS: INSULIN GLARGINE UD 100 UNITS/ML SYR SUBCUT SCH ×2 (09:23→22:12)
[2019-06-16] MEDS ORDERED: POTASSIUM CHLORIDE 20MEQ TABLET SR PO NR (10:45)
[2019-06-16] MEDS ORDERED: REGADENOSON 0.4 MG/5 ML IV ONE (12:30)
[2019-06-16] MEDS: LEVOFLOXACIN 500MG PREMIX 100 ML IV SCH (12:36)
[2019-06-16] MEDS: DOCUSATE SODIUM 100MG CAPSULE PO PRN ×2 (16:54→20:41)
[2019-06-16] MEDS: DIGOXIN 125MCG TABLET PO SCH (17:36)
[2019-06-16] MEDS: ATORVASTATIN CALCIUM 20MG TABLET PO SCH (20:40)
[2019-06-17] VITALS (7 sets, daily range): BP systolic 149–171; BP diastolic 61–86
[2019-06-17] MEDS ORDERED: DEXT 5%/0.45% NACL KCL 20MEQ/L 1,000 ML IV SCH
[2019-06-17] MEDS: IPRATROPIUM/ALBUTEROL 0.5-3(2.5)MG/3ML NEB HHN SCH ×3 (02:05→14:22)
[2019-06-17] MEDS: DILTIAZEM HCL 60MG TABLET PO SCH ×3 (02:09→14:40)
[2019-06-17 06:10] LABS: BASOPHILS % 0.4 % (0.0-2.0); EOSINOPHILS % 1.7 % (0.0-5.0); HEMATOCRIT. 30.9 % (36.0-48.0); HEMOGLOBIN. 9.6 g/dL (12.0-16.0); MEAN CORPUSCULAR HEMOGLOBIN 22.5 pg (28.0-32.0); MEAN CORPUSCULAR VOLUME 72.4 fL (81.0-99.0); MEAN PLATELET VOLUME 8.1 fl (7.4-10.4); MONOCYTES % 6.2 % (2.0-8.0); NEUTROPHILS % 62.7 % (40.0-76.0); PLATELET 304 x1000/uL (130-400); RED BLOOD CELL COUNT 4.26 mill/uL (4.2-5.4); RED CELL DISTRIBUTION WIDTH 16.7 % (11.6-14.6)
[2019-06-17] MEDS: HYDRALAZINE HCL 10MG TABLET PO SCH ×2 (06:20→14:39)
[2019-06-17] MEDS: FUROSEMIDE 40MG/4ML VIAL IVP SCH ×2 (06:20→17:32)
[2019-06-17] MEDS: GABAPENTIN 100MG CAPSULE PO SCH ×2 (06:20→14:40)
[2019-06-17] MEDS: BLOOD SUGAR DIAGNOSTIC STRIP TEST SCH ×3 (06:39→17:18)
[2019-06-17 06:41] LABS: CHLORIDE 103 mEq/L (98-107)
[2019-06-17] MEDS: INSULIN LISPRO 100 UNITS/ML SUBCUT SCH ×3 (06:45→17:31)
[2019-06-17] MEDS: BUDESONIDE 0.5MG/2ML NEB HHN SCH (08:50)
[2019-06-17] MEDS: DOCUSATE SODIUM 100MG CAPSULE PO PRN ×2 (09:47→17:33)
[2019-06-17] MEDS: ASPIRIN 81MG EC TABLET PO SCH (09:47)
[2019-06-17] MEDS: METOPROLOL TARTRATE 25MG TABLET PO SCH (09:50)
[2019-06-17] MEDS: LISINOPRIL 20MG TABLET PO SCH (09:51)
[2019-06-17] MEDS: APIXABAN 5 MG TABLET PO SCH ×2 (09:51→17:41)
[2019-06-17] MEDS: INSULIN GLARGINE UD 100 UNITS/ML SYR SUBCUT SCH (10:00)
[2019-06-17] MEDS ORDERED: REGADENOSON 0.4 MG/5 ML IV ONE (10:51)
[2019-06-17] MEDS: LEVOFLOXACIN 500MG PREMIX 100 ML IV SCH (14:39)
[2019-06-17] MEDS: DIGOXIN 125MCG TABLET PO SCH (17:33)
[2019-06-18] MEDS ORDERED: LISINOPRIL 10MG TABLET PO SCH (09:00)
== END 2019-06-17 20:40 | disposition home or self-care (01) | DRG 194 ==
LOC: ER 23:37 → 5WST 06-14 05:05 → EDBEDREQ 06-14 05:11 → EDBEDREQTM 06-14 05:11 → ENRESERV 06-14 08:07
PROVIDERS: ADMIT Internal Medicine; ATTEND Internal Medicine
DX: I11.0 Hypertensive heart disease with heart failure (principal); E11.65 Type 2 diabetes mellitus with hyperglycemia; J84.10 Pulmonary fibrosis, unspecified; Z79.01 Long term (current) use of anticoagulants; I50.33 Acute on chronic diastolic (congestive) heart failure; I48.0 Paroxysmal atrial fibrillation; E78.5 Hyperlipidemia, unspecified; D64.9 Anemia, unspecified; J44.9 Chronic obstructive pulmonary disease, unspecified; R07.89 Other chest pain; E78.00 Pure hypercholesterolemia, unspecified; K59.00 Constipation, unspecified; Z82.49 Family history of ischemic heart disease and other diseases of the circulatory system; Z83.3 Family history of diabetes mellitus; Z79.84 Long term (current) use of oral hypoglycemic drugs; Z79.899 Other long term (current) drug therapy
CPT/HCPCS: 36415; 36600; 71045; 71250; 78452; 80048; 80053; 80061; 80162; 80305; 81003; 82375; 82805; 82962; 83036; 83540; 83550; 83735; 83880; 84443; 84484; 85014; 85018; 85025; 85044; 85379; 87804; 93005; 93017; 93306; 94640; 96374; 96375; 99285; A9500; J0360; J1650; J1815; J1885; J1940; J1956; J2270; J2405; J2785; J3490; J7626

== ENCOUNTER 2020-01-06 14:03 | Inpatient (IN) | payer MEDICAID ==
[~2020-01-06] VITALS: Ht 157.5 cm; Wt 89.8 kg
[~2020-01-06 14:03] MED LIST changes: +GLIP10TA10 MT; +HYDR-4134 MT; +LISI-604 MT
[2020-01-06] MEDS ORDERED: MORPHINE SULFATE 4 MG/ML CPJ (NOT FOR IM USE) IV STA (15:46)
[2020-01-06] MEDS ORDERED: ONDANSETRON HCL 4MG/2ML INJ IV STA (15:46)
[2020-01-06] MEDS ORDERED: SODIUM CHLORIDE 0.9% 1,000 ML IV ONE (15:46)
[2020-01-06 16:43] LABS: HEMATOCRIT. 29.3 % (36.0-48.0); HEMOGLOBIN. 8.8 g/dL (12.0-16.0); MEAN CORPUSCULAR HEMOGLOBIN 20.4 pg (28.0-32.0); MEAN CORPUSCULAR VOLUME 67.6 fL (81.0-99.0); PLATELET 269 x1000/uL (130-400); RED BLOOD CELL COUNT 4.34 mill/uL (4.2-5.4); RED CELL DISTRIBUTION WIDTH 19.3 % (11.6-14.6)
[2020-01-06 16:47] LABS: CHLORIDE 106 mEq/L (98-107)
[2020-01-06] MEDS: ACYCLOVIR INJ 750 MG in DEXT 5% WATER 100 ML IV SCH ×2 (16:52→23:28)
[2020-01-06 16:57] LABS: PARTIAL THROMBOPLASTIN TIME 27.6 sec (23.4-31.0); PROTHROMBIN TIME 10.5 sec (9.6-11.0)
[2020-01-06 17:07] LABS: DIGOXIN 1.4 ng/mL (0.9-2.0)
[2020-01-06 17:22] LABS: PLATELET ESTIMATE NORMAL
[2020-01-06] MEDS ORDERED: MORPHINE SULFATE 2 MG/ML CPJ (NOT FOR IM USE) IV PRN (21:00)
[2020-01-06 23:00] VITALS: BP 198/82
[2020-01-07] MEDS: MORPHINE SULFATE 2 MG/ML CPJ (NOT FOR IM USE) IV PRN ×5 (00:07→20:15)
[2020-01-07] MEDS: CLONIDINE 0.1MG TABLET PO PRN ×2 (00:27→06:44)
[2020-01-07] MEDS ORDERED: DEXTROSE 50% WATER 50ML SYRINGE IV PRN (00:30)
[2020-01-07] MEDS: DIPHENHYDRAMINE 50MG/ML VIAL IV PRN ×3 (01:33→16:47)
[2020-01-07 02:32] VITALS: BP 197/82
[2020-01-07] MEDS ORDERED: PRAV40TA58 PO (02:49)
[2020-01-07] MEDS ORDERED: FERR325T6 PO (02:52)
[2020-01-07] MEDS ORDERED: POTA8CAP20 PO (03:03)
[2020-01-07 04:00] VITALS: BP 199/89
[2020-01-07] MEDS ORDERED: HYDRALAZINE 20MG/ML VIAL IV NR (04:37)
[2020-01-07] MEDS: INSULIN LISPRO 100 UNITS/ML SUBCUT SCH ×4 (06:11→20:47)
[2020-01-07] MEDS: BLOOD SUGAR DIAGNOSTIC STRIP TEST SCH ×4 (06:11→20:47)
[2020-01-07 07:55] VITALS: BP 171/92
[2020-01-07] MEDS: APIXABAN 5 MG TABLET PO SCH ×2 (08:05→16:48)
[2020-01-07] MEDS: HYDRALAZINE 20MG/ML VIAL IV PRN ×2 (08:05→15:05)
[2020-01-07 12:00] VITALS: BP 149/70
[2020-01-07 16:00] VITALS: BP 179/83
[2020-01-07] MEDS: DILTIAZEM HCL 180MG CAPSULE CD 24HR PO SCH (16:46)
[2020-01-07] MEDS: ACYCLOVIR 400 MG TABLET PO SCH (16:49)
[2020-01-07 17:40] LABS: TOTAL IRON BINDING CAPACITY 324 ug/dL (250-450)
[2020-01-07 20:00] VITALS: BP 192/88
[2020-01-07] MEDS: LISINOPRIL 20MG TABLET PO SCH (20:14)
[2020-01-07] MEDS ORDERED: ACETAMINOPHEN 325MG TABLET PO PRN (20:45)
[2020-01-07] MEDS: IPRATROPIUM/ALBUTEROL 0.5-3(2.5)MG/3ML NEB HHN SCH (20:49)
[2020-01-07] MEDS: BUDESONIDE 0.5MG/2ML NEB HHN SCH (20:49)
[2020-01-08] VITALS: BP 164/65
[2020-01-08] MEDS: HYDRALAZINE HCL 25MG TABLET PO SCH ×2 (00:27→05:58)
[2020-01-08] MEDS: IPRATROPIUM/ALBUTEROL 0.5-3(2.5)MG/3ML NEB HHN SCH ×3 (01:23→12:25)
[2020-01-08 04:00] VITALS: BP 170/66
[2020-01-08] MEDS: HYDRALAZINE 20MG/ML VIAL IV PRN (04:30)
[2020-01-08] MEDS: MORPHINE SULFATE 2 MG/ML CPJ (NOT FOR IM USE) IV PRN ×3 (04:31→14:12)
[2020-01-08] MEDS: BLOOD SUGAR DIAGNOSTIC STRIP TEST SCH ×3 (06:04→16:22)
[2020-01-08] MEDS: DIPHENHYDRAMINE 50MG/ML VIAL IV PRN (06:13)
[2020-01-08] MEDS: INSULIN LISPRO 100 UNITS/ML SUBCUT SCH ×2 (06:21→11:52)
[2020-01-08 06:27] LABS: HEMATOCRIT 28.3 % (36.0-48.0); HEMOGLOBIN 8.6 g/dL (12.0-16.0); MEAN CORPUSCULAR HEMOGLOBIN 20.3 pg (28.0-32.0); MEAN CORPUSCULAR VOLUME 66.6 fL (81.0-99.0); PLATELET 311 x1000/uL (130-400); RED BLOOD CELL COUNT 4.24 mill/uL (4.2-5.4); RED CELL DISTRIBUTION WIDTH 19.1 % (11.6-14.6)
[2020-01-08 06:33] LABS: CHLORIDE 104 mEq/L (98-107)
[2020-01-08 08:00] VITALS: BP 188/78
[2020-01-08] MEDS: BUDESONIDE 0.5MG/2ML NEB HHN SCH (08:27)
[2020-01-08] MEDS: LISINOPRIL 20MG TABLET PO SCH (08:28)
[2020-01-08] MEDS: APIXABAN 5 MG TABLET PO SCH (08:28)
[2020-01-08] MEDS: DILTIAZEM HCL 180MG CAPSULE CD 24HR PO SCH (08:28)
[2020-01-08] MEDS: ACYCLOVIR 400 MG TABLET PO SCH ×2 (08:28→13:02)
[2020-01-08 09:30] VITALS: BP 173/83
[2020-01-08] MEDS: CLONIDINE 0.1MG TABLET PO PRN (10:04)
[2020-01-08] MEDS ORDERED: HYDROCODONE/ACETAMINOPHEN 5/325MG TABLET PO PRN ×3 (10:15→14:15)
[2020-01-08] MEDS ORDERED: GABAPENTIN 300MG CAPSULE PO NR (10:45)
[2020-01-08 11:13] LABS: BG BASE EXCESS 2.8 mmol/L (-2.0-2.0); BG CARBOXYHEMOGLOBIN 0.7 % (0.5-1.5); BG DEOXYHEMOGLOBIN 2.3 % (0.0-5.0); BG FRACTION INSPIRED OXYGEN 21; BG HCO3 ACT 27.1 mmol/L (22.0-26.0); BG METHEMOGLOBIN 0.3 % (0.0-1.5); BG OXYGEN SATURATION 97.7 % (92.0-98.5); BG OXYHEMOGLOBIN 96.7 % (94.0-97.0); BG PCO2 40.7 mmHg (35.0-45.0); BG PH 7.442 (7.350-7.450); BG SAMPLE SITE LEFT BRACHIAL; BG TOTAL HEMOGLOBIN 9.8 g/dL (12.0-18.0); BG VENT MODE ROOM AIR
[2020-01-08 12:00] VITALS: BP 152/70
[2020-01-08 12:16] LABS: CLARITY URINE CLEAR (CLEAR); COLOR URINE YELLOW (YELLOW); KETONES URINE NEGATIVE (NEGATIVE); LEUKOCYTE ESTERASE URINE TRACE (NEGATIVE); NITRITE URINE NEGATIVE (NEGATIVE); OCCULT BLOOD URINE NEGATIVE (NEGATIVE); PROTEIN URINE NEGATIVE (NEGATIVE); SPECIFIC GRAVITY URINE 1.012 (1.005-1.030)
[2020-01-08] MEDS ORDERED: ACYC200C PO (13:10)
[2020-01-08] MEDS ORDERED: HYDR-4135 MT (13:10)
[2020-01-08] MEDS ORDERED: ALBU90AE INH (13:10)
[2020-01-08] MEDS ORDERED: HYDR-4001 MT (13:10)
[2020-01-08] MEDS ORDERED: GABA-531 MT (13:10)
[2020-01-08] MEDS ORDERED: GABAPENTIN 300MG CAPSULE PO SCH (14:00)
[2020-01-08] MEDS ORDERED: HYDRALAZINE HCL 50MG TABLET PO SCH (14:00)
[2020-01-08] MEDS ORDERED: ACYCLOVIR 200MG CAPSULE PO SCH (15:00)
[2020-01-08 15:26] VITALS: BP 152/70
== END 2020-01-08 16:40 | disposition home or self-care (01) | DRG 383 ==
LOC: ER 14:03 → EDBEDREQTM 18:39 → EDBEDREQ 18:39 → ENRESERV 21:28 → 5WST 22:50
PROVIDERS: ADMIT Internal Medicine; ATTEND Internal Medicine
DX: B02.9 Zoster without complications (principal); E44.0 Moderate protein-calorie malnutrition; I25.119 Atherosclerotic heart disease of native coronary artery with unspecified angina pectoris; I11.0 Hypertensive heart disease with heart failure; J44.9 Chronic obstructive pulmonary disease, unspecified; E78.5 Hyperlipidemia, unspecified; D64.9 Anemia, unspecified; I50.33 Acute on chronic diastolic (congestive) heart failure; J84.9 Interstitial pulmonary disease, unspecified; E11.65 Type 2 diabetes mellitus with hyperglycemia; I48.0 Paroxysmal atrial fibrillation; G47.30 Sleep apnea, unspecified; I27.20 Pulmonary hypertension, unspecified; Z79.01 Long term (current) use of anticoagulants; Z79.84 Long term (current) use of oral hypoglycemic drugs; Z79.899 Other long term (current) drug therapy; I16.0 Hypertensive urgency
CPT/HCPCS: 36415; 36600; 71045; 71275; 80048; 80053; 80162; 81003; 82375; 82728; 82805; 82962; 83036; 83540; 83550; 83880; 84484; 85025; 85027; 85044; 93005; 93970; 94640; 96374; 99285; J0133; J0360; J1200; J2270; J2405; J7030; J7060; J7626

== ENCOUNTER 2021-04-23 11:45 | Inpatient (IN) | payer MEDICAID ==
[~2021-04-23] VITALS: Ht 157.5 cm; Wt 85.7 kg
[~2021-04-23 11:45] MED LIST changes: +ACYC200C31 PO; +ALBU90AE INH; +FERR325T6 PO; +GABA-532 MT; +HYDR-4001 MT; -HYDR-4134 MT; +HYDR-4135 MT; -LISI-604 MT; +LISI20TA31 MT; -METF-816 MT; +METF-874 MT; -OMEP20CA14 MT; +POTA8CAP20 PO; +PRAV40TA58 PO; -SIMV-43 MT
[2021-04-23] MEDS ORDERED: MORPHINE SULFATE 4 MG/ML CPJ (NOT FOR IM USE) IV ONE (13:00)
[2021-04-23 13:07] LABS: BASOPHILS % 0.3 % (0.0-2.0); EOSINOPHILS % 4.6 % (0.0-5.0); HEMATOCRIT. 32.3 % (36.0-48.0); HEMOGLOBIN. 9.7 g/dL (12.0-16.0); LYMPHOCYTES % 24.2 % (20.0-50.0); MEAN CORPUSCULAR HEMOGLOBIN 20.2 pg (28.0-32.0); MEAN CORPUSCULAR VOLUME 67.4 fL (81.0-99.0); MONOCYTES % 5.5 % (2.0-8.0); NEUTROPHILS % 65.4 % (40.0-76.0); PLATELET 305 x1000/uL (130-400); RED BLOOD CELL COUNT 4.79 mill/uL (4.2-5.4); RED CELL DISTRIBUTION WIDTH 17.7 % (11.6-14.6)
[2021-04-23 13:10] LABS: CHLORIDE 104 mEq/L (98-107)
[2021-04-23] MEDS ORDERED: METHOCARBAMOL 500MG TABLET PO ONE (13:15)
[2021-04-23 13:30] LABS: BG BASE EXCESS 2.3 mmol/L (-2.0-2.0); BG CARBOXYHEMOGLOBIN 0.5 % (0.5-1.5); BG DEOXYHEMOGLOBIN 4.7 % (0.0-5.0); BG FRACTION INSPIRED OXYGEN 21; BG METHEMOGLOBIN 0.1 % (0.0-1.5); BG OXYGEN SATURATION 95.3 % (92.0-98.5); BG OXYHEMOGLOBIN 94.7 % (94.0-97.0); BG PCO2 42.7 mmHg (35.0-45.0); BG PH 7.419 (7.350-7.450); BG PO2 79.5 mmHg (75.0-100.0); BG TOTAL HEMOGLOBIN 10.1 g/dL (12.0-18.0); BG VENT MODE ROOM AIR
[2021-04-23 13:49] LABS: PLATELET ESTIMATE NORMAL
[2021-04-23] MEDS ORDERED: HYDRALAZINE 20MG/ML VIAL IV ONE (18:30)
[2021-04-23] MEDS ORDERED: ACETAMINOPHEN 325MG TABLET PO ONE (19:15)
[2021-04-23] MEDS ORDERED: KETOROLAC 30MG/ML VIAL IV ONE (21:15)
[2021-04-24] VITALS (8 sets, daily range): BP systolic 158–217; BP diastolic 72–106
[2021-04-24] MEDS ORDERED: ACETAMINOPHEN 325MG TABLET PO PRN (03:00)
[2021-04-24] MEDS ORDERED: DEXTROSE 50% WATER 50ML SYRINGE IV PRN (03:00)
[2021-04-24] MEDS: HYDRALAZINE HCL 50MG TABLET PO SCH ×2 (05:37→13:30)
[2021-04-24] MEDS: BLOOD SUGAR DIAGNOSTIC STRIP TEST SCH ×4 (05:37→20:17)
[2021-04-24] MEDS: INSULIN LISPRO 100 UNITS/ML SUBCUT SCH ×4 (05:39→20:17)
[2021-04-24] MEDS: CLONIDINE 0.1MG TABLET PO PRN ×3 (05:52→19:00)
[2021-04-24 06:23] LABS: BASOPHILS % 0.7 % (0.0-2.0); EOSINOPHILS % 4.5 % (0.0-5.0); HEMATOCRIT. 32.6 % (36.0-48.0); HEMOGLOBIN. 9.7 g/dL (12.0-16.0); LYMPHOCYTES % 34.8 % (20.0-50.0); MEAN CORPUSCULAR HEMOGLOBIN 20.4 pg (28.0-32.0); MEAN CORPUSCULAR VOLUME 68.4 fL (81.0-99.0); MEAN PLATELET VOLUME 8.3 fl (7.4-10.4); MONOCYTES % 6.6 % (2.0-8.0); NEUTROPHILS % 53.4 % (40.0-76.0); PLATELET 328 x1000/uL (130-400); RED BLOOD CELL COUNT 4.77 mill/uL (4.2-5.4); RED CELL DISTRIBUTION WIDTH 17.7 % (11.6-14.6)
[2021-04-24 06:24] LABS: CHLORIDE 103 mEq/L (98-107)
[2021-04-24] MEDS: DILTIAZEM HCL 180MG CAPSULE CD 24HR PO SCH (08:38)
[2021-04-24] MEDS: LISINOPRIL 20MG TABLET PO SCH ×2 (08:38→20:16)
[2021-04-24] MEDS: METOPROLOL TARTRATE 25MG TABLET PO SCH ×2 (08:39→20:17)
[2021-04-24] MEDS: APIXABAN 5 MG TABLET PO SCH ×2 (08:39→16:42)
[2021-04-24] MEDS ORDERED: LIDOCAINE 5% PATCH TOP SCH (09:00)
[2021-04-24] MEDS ORDERED: CLONIDINE 0.1MG TABLET PO NR (10:15)
[2021-04-24] MEDS: HYDRALAZINE HCL 100MG TABLET PO SCH ×2 (14:20→21:11)
[2021-04-24] MEDS ORDERED: MINOXIDIL 2.5MG TABLET PO NR (16:30)
[2021-04-24] MEDS: DIGOXIN 250MCG TABLET PO SCH (16:55)
[2021-04-24] MEDS: GABAPENTIN 100MG CAPSULE PO SCH (21:11)
[2021-04-24] MEDS ORDERED: IOHEXOL-350 100 ML BOTTLE ONE (23:20)
[2021-04-25] VITALS: BP 189/81
[2021-04-25] MEDS ORDERED: METOPROLOL TARTRATE 25MG TABLET PO NR (00:15)
[2021-04-25 04:00] VITALS: BP 167/77
[2021-04-25] MEDS: GABAPENTIN 100MG CAPSULE PO SCH ×3 (04:59→21:40)
[2021-04-25] MEDS: HYDRALAZINE HCL 100MG TABLET PO SCH ×3 (04:59→21:39)
[2021-04-25] MEDS: BLOOD SUGAR DIAGNOSTIC STRIP TEST SCH ×4 (06:15→21:44)
[2021-04-25] MEDS: CLONIDINE 0.1MG TABLET PO PRN ×2 (06:15→16:56)
[2021-04-25] MEDS: INSULIN LISPRO 100 UNITS/ML SUBCUT SCH ×4 (06:15→21:46)
[2021-04-25 08:00] VITALS: BP 168/67
[2021-04-25] MEDS: LISINOPRIL 20MG TABLET PO SCH ×2 (08:09→21:38)
[2021-04-25] MEDS: DILTIAZEM HCL 180MG CAPSULE CD 24HR PO SCH (08:10)
[2021-04-25] MEDS: APIXABAN 5 MG TABLET PO SCH ×2 (08:10→16:56)
[2021-04-25] MEDS ORDERED: METOPROLOL TARTRATE 50MG TABLET PO SCH ×2 (09:00→11:09)
[2021-04-25 12:00] VITALS: BP 162/72
[2021-04-25] MEDS ORDERED: CLONIDINE 0.2MG TABLET PO PRN (13:45)
[2021-04-25 16:00] VITALS: BP 176/76
[2021-04-25] MEDS: DIGOXIN 250MCG TABLET PO SCH (16:56)
[2021-04-25] MEDS ORDERED: ZOLPIDEM TARTRATE 5MG TABLET PO PRN (18:30)
[2021-04-25 20:00] VITALS: BP 190/85
[2021-04-25] MEDS: METOPROLOL TARTRATE 100MG TABLET PO SCH (21:00)
[2021-04-25] MEDS: CLONIDINE 0.2MG TABLET PO SCH (21:51)
[2021-04-26] VITALS: BP 199/73
[2021-04-26 04:00] VITALS: BP 183/74
[2021-04-26] MEDS: CLONIDINE 0.2MG TABLET PO SCH ×2 (05:53→14:00)
[2021-04-26] MEDS: HYDRALAZINE HCL 100MG TABLET PO SCH ×2 (05:53→14:28)
[2021-04-26] MEDS: GABAPENTIN 100MG CAPSULE PO SCH ×2 (05:53→14:28)
[2021-04-26 06:31] LABS: BASOPHILS % 0.6 % (0.0-2.0); EOSINOPHILS % 4.4 % (0.0-5.0); HEMATOCRIT. 32.1 % (36.0-48.0); HEMOGLOBIN. 9.5 g/dL (12.0-16.0); LYMPHOCYTES % 32.4 % (20.0-50.0); MEAN CORPUSCULAR VOLUME 67.4 fL (81.0-99.0); MEAN PLATELET VOLUME 8.1 fl (7.4-10.4); MONOCYTES % 7.4 % (2.0-8.0); NEUTROPHILS % 55.2 % (40.0-76.0); PLATELET 339 x1000/uL (130-400); RED BLOOD CELL COUNT 4.76 mill/uL (4.2-5.4)
[2021-04-26] MEDS: BLOOD SUGAR DIAGNOSTIC STRIP TEST SCH ×2 (06:36→12:33)
[2021-04-26] MEDS: INSULIN LISPRO 100 UNITS/ML SUBCUT SCH ×2 (06:37→12:44)
[2021-04-26 07:35] LABS: CHLORIDE 107 mEq/L (98-107)
[2021-04-26 08:00] VITALS: BP 156/63
[2021-04-26] MEDS: APIXABAN 5 MG TABLET PO SCH (08:25)
[2021-04-26] MEDS: DILTIAZEM HCL 180MG CAPSULE CD 24HR PO SCH (08:25)
[2021-04-26] MEDS: LISINOPRIL 20MG TABLET PO SCH (08:26)
[2021-04-26] MEDS: METOPROLOL TARTRATE 100MG TABLET PO SCH (08:26)
[2021-04-26] MEDS ORDERED: HYDROCODONE/ACETAMINOPHEN 5/325MG TABLET PO NR (11:30)
[2021-04-26 12:00] VITALS: BP 155/70
[2021-04-26] MEDS ORDERED: HYDR100T26 MT (13:10)
[2021-04-26] MEDS ORDERED: CLON0.1T PO ×2 (13:10)
[2021-04-26] MEDS ORDERED: METO100T16 MT (13:10)
[2021-04-26] MEDS ORDERED: DILT360C27 MT (13:10)
[2021-04-26] MEDS ORDERED: LOSA50TA3 MT ×3 (13:10→14:27)
[2021-04-26 14:50] VITALS: BP 155/70
== END 2021-04-26 15:30 | disposition home or self-care (01) | DRG 194 ==
LOC: ER 13:12 → 8WST 20:49 → ENRESERV 04-24 00:17
PROVIDERS: ADMIT Internal Medicine; ATTEND Internal Medicine
DX: I11.0 Hypertensive heart disease with heart failure (principal); I27.20 Pulmonary hypertension, unspecified; I50.33 Acute on chronic diastolic (congestive) heart failure; I16.0 Hypertensive urgency; E46 Unspecified protein-calorie malnutrition; E11.42 Type 2 diabetes mellitus with diabetic polyneuropathy; D50.8 Other iron deficiency anemias; D50.9 Iron deficiency anemia, unspecified; E11.40 Type 2 diabetes mellitus with diabetic neuropathy, unspecified; I48.0 Paroxysmal atrial fibrillation; E66.9 Obesity, unspecified; E78.00 Pure hypercholesterolemia, unspecified; E78.5 Hyperlipidemia, unspecified; I35.0 Nonrheumatic aortic (valve) stenosis; G47.33 Obstructive sleep apnea (adult) (pediatric); J44.9 Chronic obstructive pulmonary disease, unspecified; Z87.891 Personal history of nicotine dependence; Z79.01 Long term (current) use of anticoagulants; Z68.34 Body mass index [BMI] 34.0-34.9, adult; Z79.891 Long term (current) use of opiate analgesic; Z79.899 Other long term (current) drug therapy; Z79.84 Long term (current) use of oral hypoglycemic drugs
CPT/HCPCS: 36415; 36600; 71045; 71275; 73030; 80048; 80053; 82375; 82805; 82962; 83036; 83735; 83880; 84443; 84484; 85025; 85379; 93005; 93306; 93970; 99285; J0360; J1815; J1885; J2270; Q9967

== ENCOUNTER 2024-03-16 19:31 | Emergency (ER) | payer MEDICARE, MEDICAID ==
[~2024-03-16] VITALS: Ht 157.5 cm; Wt 94.3 kg
[~2024-03-16 19:31] MED LIST changes: -CLON0.1T MT; -DILT180T11 MT; +DILT360C27 MT; -HYDR-4135 MT; +HYDR100T11 MT; -LISI20TA31 MT; +LOSA-413 MT; +METO100T16 MT; -METO25TA6 MT
[2024-03-16 19:43] VITALS: O2SAT 100
[2024-03-16 22:01] LABS: BASOPHILS % 0.7 % (0.0-2.0); DIFFERENTIAL COMMENT 0; EOSINOPHILS % 2.3 % (0.0-5.0); HEMATOCRIT. 36.9 % (36.0-48.0); LYMPHOCYTES % 36.9 % (20.0-50.0); MEAN CORPUSCULAR HGB CONC 29.8 g/dL (31.0-37.0); MEAN CORPUSCULAR VOLUME 77.2 fL (81.0-99.0); MEAN PLATELET VOLUME 8.8 fl (7.4-10.4); MONOCYTES % 6.9 % (2.0-8.0); NEUTROPHILS % 53.2 % (40.0-76.0); PLATELET 235 x1000/uL (130-400); RED BLOOD CELL COUNT 4.78 mill/uL (4.2-5.4); RED CELL DISTRIBUTION WIDTH 14.8 % (11.6-14.6)
[2024-03-16 22:08] LABS: INR 0.9; PROTHROMBIN TIME 10.3 sec (9.6-11.0)
[2024-03-16 22:16] LABS: CARBON DIOXIDE 25 mEq/L (21-32); CHLORIDE 110 mEq/L (98-107); POTASSIUM 4.1 mEq/L (3.5-5.1); SODIUM 141 mEq/L (136-145)
[2024-03-16 22:17] LABS: CALCIUM 10.1 mg/dL (8.7-10.4)
[2024-03-16 22:22] LABS: CREATININE 0.7 mg/dL (0.6-1.0); GLUCOSE 159 mg/dL (70-105); UREA NITROGEN BLOOD 15 mg/dL (9-23)
[2024-03-16 22:24] LABS: TROPONIN I HIGH SENSITIVITY 7 ng/L (3.0-34)
[2024-03-17] MEDS: IOHEXOL-350 100 ML BOTTLE ONE (02:17)
[2024-03-17] MEDS: CLONIDINE 0.1MG TABLET PO ONE (02:35)
[2024-03-17] MEDS: METOCLOPRAMIDE HCL 10MG/2ML VIAL IV ONE (02:35)
[2024-03-17] MEDS: KETOROLAC 15MG/ML VIAL IV ONE (02:35)
[2024-03-17 03:52] VITALS: TEMP 36.55848; O2SAT 95
[2024-03-17 07:32] VITALS: BP 99/57; PULSE 94; RESP 16; TEMP 97.8
== END 2024-03-17 07:43 | disposition left against medical advice (07) ==
LOC: ER 19:31 → EDBEDREQ 20:20 → ER 03-17 07:43 → CANBEDREQ 03-17 08:11
DX: R42 Dizziness and giddiness (principal); I16.0 Hypertensive urgency; R06.02 Shortness of breath; I11.0 Hypertensive heart disease with heart failure; I50.9 Heart failure, unspecified; Z79.899 Other long term (current) drug therapy
CPT/HCPCS: 99285; 70450; 71045; 80048; 83880; 85025; 85379; 85610; 84484; 36415; 93005; 71275; 96374; 96375; 70496; 70498; Q9967; J1885; J2765

== ENCOUNTER 2024-09-29 07:31 | Emergency (ER) | payer MEDICARE, MEDICAID ==
[~2024-09-29] VITALS: Ht 170.2 cm; Wt 77.0 kg
[~2024-09-29 07:31] MED LIST changes: +GABA-1180 MT; -GABA-532 MT; -GLIP10TA10 MT; +GLIP10TA17 MT; +METF-1150 MT; -METF-874 MT
[2024-09-29 07:35] VITALS: O2SAT 99
[2024-09-29] MEDS: IBUPROFEN 600MG TABLET PO STA (08:19)
[2024-09-29] MEDS: ACETAMINOPHEN 325MG TABLET PO STA (08:19)
[2024-09-29] MEDS: IOHEXOL-350 100 ML BOTTLE ONE (08:20)
[2024-09-29 08:38] LABS: BASOPHILS % 0.6 % (0.0-2.0); DIFFERENTIAL COMMENT 0; EOSINOPHILS % 1.3 % (0.0-5.0); HEMATOCRIT. 36.4 % (36.0-48.0); HEMOGLOBIN. 11.1 g/dL (12.0-16.0); LYMPHOCYTES % 29.1 % (20.0-50.0); MEAN CORPUSCULAR HEMOGLOBIN 22.4 pg (28.0-32.0); MEAN CORPUSCULAR HGB CONC 30.5 g/dL (31.0-37.0); MEAN CORPUSCULAR VOLUME 73.5 fL (81.0-99.0); MEAN PLATELET VOLUME 8.9 fl (7.4-10.4); MONOCYTES % 5.5 % (2.0-8.0); NEUTROPHILS % 63.5 % (40.0-76.0); PLATELET 263 x1000/uL (130-400); RED BLOOD CELL COUNT 4.95 mill/uL (4.2-5.4); RED CELL DISTRIBUTION WIDTH 15.5 % (11.6-14.6); WHITE BLOOD COUNT 7.1 x1000/uL (4.5-11.0)
[2024-09-29 09:05] LABS: CHLORIDE 105 mEq/L (98-107); POTASSIUM 3.4 mEq/L (3.5-5.1); SODIUM 140 mEq/L (136-145)
[2024-09-29 09:06] LABS: CALCIUM 11.2 mg/dL (8.7-10.4); CARBON DIOXIDE 29 mEq/L (21-32)
[2024-09-29 09:11] LABS: CREATININE 0.6 mg/dL (0.6-1.0); GLUCOSE 185 mg/dL (70-105); UREA NITROGEN BLOOD 7 mg/dL (9-23)
[2024-09-29 09:13] LABS: ALANINE AMINOTRANSFERASE 10 IU/L (10-49); ALBUMIN 4.6 g/dL (3.2-4.8); ASPARTATE AMINOTRANSFERASE 13 IU/L (<34); BILIRUBIN DIRECT 0.1 mg/dL (<=3.0); BILIRUBIN TOTAL 0.6 mg/dL (0.1-1.0)
[2024-09-29] MEDS ORDERED: POLY119P2 MT (10:01)
[2024-09-29] MEDS ORDERED: SENN8.6T21 MT (10:01)
[2024-09-29 10:15] VITALS: BP 187/98; PULSE 87; RESP 18; TEMP 36.7; O2SAT 99
== END 2024-09-29 10:23 | disposition home or self-care (01) ==
LOC: ER 07:31
DX: K59.00 Constipation, unspecified (principal); R10.9 Unspecified abdominal pain; E78.5 Hyperlipidemia, unspecified; I11.0 Hypertensive heart disease with heart failure; I25.10 Atherosclerotic heart disease of native coronary artery without angina pectoris; I50.9 Heart failure, unspecified; J44.9 Chronic obstructive pulmonary disease, unspecified; Z79.01 Long term (current) use of anticoagulants; Z79.84 Long term (current) use of oral hypoglycemic drugs; Z79.899 Other long term (current) drug therapy
CPT/HCPCS: 99284; 74176; 80076; 80048; 83690; 85025; 36415; Q9967